=== PATIENT | female | born 1970 | race Hispanic/Latino ===

== ENCOUNTER 2021-02-14 19:38 | Emergency (ER) | payer OTHER, SELFPAY ==
[2021-02-14] MEDS ORDERED: Morphine 4 MG/ML VIAL ONE (20:05)
[2021-02-14] MEDS ORDERED: PROPOFOL 20 ML ONE (20:46)
[2021-02-14] MEDS ORDERED: Ketorolac Tromethamine 30 MG/ML VIAL ONE (20:47)
== END 2021-02-14 22:00 | disposition home or self-care (01) ==
LOC: ERS 19:38
DX: S59.201A Unspecified physeal fracture of lower end of radius, right arm, initial encounter for closed fracture (principal); E11.9 Type 2 diabetes mellitus without complications; F17.210 Nicotine dependence, cigarettes, uncomplicated; Z79.84 Long term (current) use of oral hypoglycemic drugs; Z79.899 Other long term (current) drug therapy; W19.XXXA Unspecified fall, initial encounter
CPT/HCPCS: 25605; 96374; 96375; 99152; 99153; J1885; J2270; J2704

== ENCOUNTER 2021-10-23 13:17 | Outpatient (CLI) | payer BC | END 2021-10-23 13:18 | disposition home or self-care (01) | LOC: BICRAD 13:17 | PROVIDERS: ATTEND Nurse Practitioner Family | DX: R05.9 Cough, unspecified (principal); J18.9 Pneumonia, unspecified organism; U09.9 Post COVID-19 condition, unspecified | CPT/HCPCS: 71046 ==